=== PATIENT | female | born 1975 | race Two or more races ===

== ENCOUNTER 2024-03-31 11:50 | Outpatient (CLI) | payer OTHER | END 2024-03-31 11:52 | disposition home or self-care (01) | LOC: MAMO-SONO 11:50 | PROVIDERS: ATTEND Obstetrics & Gynecology | DX: N60.11 Diffuse cystic mastopathy of right breast (principal); N60.12 Diffuse cystic mastopathy of left breast; N64.4 Mastodynia; Z12.31 Encounter for screening mammogram for malignant neoplasm of breast ==

== ENCOUNTER 2024-10-31 10:28 | Emergency (ER) | payer OTHER ==
[~2024-10-31] VITALS: Ht 162.6 cm; Wt 58.5 kg
[~2024-10-31 10:28] MED LIST: DICLOFENAC POTA50 MG PO
[2024-10-31] MEDS ORDERED: ABILIFY5 MG PO (11:05)
[2024-10-31] MEDS ORDERED: ALLEGRA ALLERGY60 MG PO (11:06)
[2024-10-31] MEDS ORDERED: LIPITOR40 M1 PO (11:06)
[2024-10-31] MEDS ORDERED: BUTALB/ACETAMINOPHEN/CAFFEINE 1 TAB TABLET PO ONE ×2 (12:00→12:22)
[2024-10-31] MEDS ORDERED: FAMOtidine 10 MG/ML (4ML VIAL) IV PUSH ONE (12:00)
[2024-10-31] MEDS ORDERED: SUCRALFATE 1 G TABLET PO ONE (12:00)
[2024-10-31] MEDS ORDERED: FAMOTIDINE/PF 20 MG/2 ML VIAL ONE (12:22)
[2024-10-31 12:57] LABS: BASO % 1.0 % (0.1-1.2); EOS # 0.16 (0.04-0.54); EOS % 4.1 % (0.7-7.0); LYMPH # 1.46 (1.18-3.74); LYMPH % 37.0 % (19.3-53.1); MEAN PLATELET VOLUME 10.90 fl (9.4-12.4); MONO # 0.27 (0.24-0.82); MONO % 6.8 % (4.7-12.5); NEUT # 2.01 (1.56-6.13); NEUT % 50.8 % (34.0-71.1); RED CELL DISTRIBUTION WIDTH 11.6 % (11.6-14.4)
[2024-10-31 13:22] LABS: ALT/SGPT 27.0 U/L (12-78); AST/SGOT 16.0 U/L (15-37); BILIRUBIN TOTAL 0.47 mg/dL (0.3-1.2); BUN CREA RATIO 16.0 (7.0-25.0); CREATININE SERUM 0.62 mg/dL (0.55-1.02); GFR 101.48; GLOBULINA 3.9 G/DL (2.4-3.5); GLUCOSE FASTING 100.0 mg/dL (65-100); OSMOLALITY SERUM 279.0 MOSM/KG (275-295)
[2024-10-31 13:31] LABS: COVID-19 AG NEGATIVE (NEGATIVE)
[2024-10-31] MEDS ORDERED: ONDANSETRON HCL 2 MG/ML VIAL IV ONE (14:00)
[2024-10-31] MEDS ORDERED: ONDANSETRON HCL 2 MG/ML VIAL ONE (14:03)
[2024-10-31] MEDS ORDERED: PROTONIX40 MG PO (15:30)
[2024-10-31] MEDS ORDERED: LEVSIN/SL0.125 MG SL (15:30)
== END 2024-10-31 15:56 | disposition home or self-care (01) ==
LOC: ER 10:28
PROVIDERS: General Practice
DX: K29.70 Gastritis, unspecified, without bleeding (principal); R51.9 Headache, unspecified; J00 Acute nasopharyngitis [common cold]; Z20.822 Contact with and (suspected) exposure to COVID-19; I10 Essential (primary) hypertension; Z88.2 Allergy status to sulfonamides
CPT/HCPCS: 36415; 71045; 76700; 96365; 99284; J2405; J3490

== ENCOUNTER → 2025-01-10 | Emergency (ER) | payer OTHER ==
[~2025-01-10] MED LIST changes: +ABILIFY5 MG PO; +ALLEGRA ALLERGY60 MG PO; +LEVSIN/SL0.125 MG SL; +LIPITOR40 M1 PO; +PROTONIX40 MG PO
== END | disposition left against medical advice (07) ==
LOC: ER 19:24
DX: Z53.21 Procedure and treatment not carried out due to patient leaving prior to being seen by health care provider (principal)

== ENCOUNTER 2025-01-19 14:23 | Emergency (ER) | payer OTHER ==
[~2025-01-19] VITALS: Ht 162.6 cm; Wt 58.5 kg
[2025-01-19] MEDS ORDERED: COZAAR25 MG PO (16:40)
[2025-01-19] MEDS ORDERED: [UNRECOGNIZED DRUG - REMARK] (16:44)
[2025-01-19] MEDS ORDERED: CYCLOBENZAPRINE HCL 5 MG TABLET PO ONE (17:15)
[2025-01-19] MEDS ORDERED: KETOROLAC TROMETHAMINE 30 MG VIAL IM ONE (17:15)
[2025-01-19] MEDS ORDERED: KETOROLAC TROMETHAMINE 30 MG VIAL ONE (17:44)
[2025-01-19 18:23] LABS: BASO % 1.2 % (0.1-1.2); EOS # 0.17 (0.04-0.54); EOS % 4.1 % (0.7-7.0); LYMPH # 1.47 (1.18-3.74); LYMPH % 35.9 % (19.3-53.1); MEAN PLATELET VOLUME 10.80 fl (9.4-12.4); MONO # 0.39 (0.24-0.82); MONO % 9.5 % (4.7-12.5); NEUT # 2.02 (1.56-6.13); NEUT % 49.3 % (34.0-71.1); RED CELL DISTRIBUTION WIDTH 12.9 % (11.6-14.4)
[2025-01-19 18:45] LABS: ALT/SGPT 29.0 U/L (12-78); AST/SGOT 17.0 U/L (15-37); BILIRUBIN TOTAL 0.48 mg/dL (0.3-1.2); BUN CREA RATIO 14.0 (7.0-25.0); CREATININE SERUM 0.66 mg/dL (0.55-1.02); GFR 94.42; GLOBULINA 3.9 G/DL (2.4-3.5); GLUCOSE FASTING 108.0 mg/dL (65-100); OSMOLALITY SERUM 279.0 MOSM/KG (275-295)
== END 2025-01-19 23:13 | disposition home or self-care (01) ==
LOC: ER 14:24
PROVIDERS: General Practice
DX: S92.312A Displaced fracture of first metatarsal bone, left foot, initial encounter for closed fracture (principal); X58.XXXA Exposure to other specified factors, initial encounter; Y93.89 Activity, other specified; Y92.89 Other specified places as the place of occurrence of the external cause; Y99.8 Other external cause status; Z88.2 Allergy status to sulfonamides
CPT/HCPCS: 36415; 73630; 96372; 99283; J1885